=== PATIENT | male | born 2000 | race Caucasian/White ===

== ENCOUNTER 2023-11-23 13:45 | Emergency (ER) | payer OTHER ==
[~2023-11-23] VITALS: Ht 188 cm; Wt 95.3 kg
[2023-11-23 14:33] LABS: BASOPHILS # (AUTO) 0.1 K/UL (0.0-0.2); BASOPHILS % (AUTO) 1.3 % (0.0-2.0); EOSINOPHILS # (AUTO) 0.1 K/uL (0.0-0.7); EOSINOPHILS % (AUTO) 1.3 % (0.0-7.0); HEMATOCRIT 48.9 % (36.7-47.1); HEMOGLOBIN 17.4 g/dL (12.5-16.3); LYMPHOCYTES # (AUTO) 2.1 K/uL (0.8-4.8); LYMPHOCYTES % (AUTO) 32.2 % (20.5-51.5); MEAN CORPUSCULAR HEMOGLOBIN 32.2 uug (23.8-33.4); MEAN CORPUSCULAR HGB CONC 36 g/dL (32.5-36.3); MEAN CORPUSCULAR VOLUME 90.6 fL (73.0-96.2); MONOCYTES # (AUTO) 0.6 K/uL (0.1-1.30); MONOCYTES % (AUTO) 8.6 % (0.0-11.0); NEUTROPHILS # (AUTO) 3.7 K/uL (1.8-8.9); NEUTROPHILS % (AUTO) 56.6 % (38.5-71.5); PLATELET COUNT (AUTO) 213 K/uL (152-348); RED CELL DISTRIBUTION WIDTH 12.8 % (12.1-16.2); WHITE BLOOD COUNT (AUTO) 6.5 K/uL (3.6-10.2)
[2023-11-23 14:38] LABS: DIFFERENTIAL COMMENT 1
[2023-11-23 14:56] LABS: ALBUMIN 4.7 g/dL (3.4-5.0); BILIRUBIN,DIRECT 0.2 mg/dL (0.0-0.2); CALCIUM 9.8 mg/dL (8.5-10.1); POTASSIUM 3.8 mmol/L (3.5-5.1); TOTAL PROTEIN, SERUM 8.5 g/dL (6.4-8.2)
[2023-11-23] MEDS ORDERED: IOHEXOL 300MG/ML 100 ML INFUS..BTL ONE (15:21)
[2023-11-23] MEDS ORDERED: SWABABLE VALVE TRANSFER SET EA MC ONE (15:21)
[2023-11-23] MEDS ORDERED: IV NORMAL SALINE 250 ML IV ONE (15:21)
[2023-11-23 18:16] VITALS: BP 133/68; TEMP 98.2; O2SAT 98
== END 2023-11-23 18:17 | disposition home or self-care (01) ==
LOC: ER 13:49
DX: S10.11XA Abrasion of throat, initial encounter (principal); M54.2 Cervicalgia; X58.XXXA Exposure to other specified factors, initial encounter; Y93.89 Activity, other specified; Y92.89 Other specified places as the place of occurrence of the external cause; Y99.8 Other external cause status
CPT/HCPCS: 99285; 70491; 71045; 80076; 80048; 85025; 85730; 36415; Q9967; A4606; A4663